=== PATIENT | female | born 1985 | race Caucasian/White ===

== ENCOUNTER 2016-06-02 08:12 | Emergency (ER) | payer BC ==
[2016-06-02 08:34] VITALS: BP 116/68
--- NOTE | 2016-06-02 09:30 | UC ---
UC General HPI - HPI Summary HPI Summary: Hx of kidney dz, sepsis, uti, kidney stone, MS Fever for two days and malaise. she has had right flank pain for two weeks which is not uncommon. she also has had continuous vomiting and URI symptoms. No obvious abd pain. - History of Current Complaint Chief Complaint: UCGI Stated Complaint: VOMITTING Time Seen by Provider: 06/02/16 08:19 Hx Obtained From: Patient Onset/Duration: Gradual Onset Timing: Constant Onset Severity: Severe Current Severity: Moderate Associated Signs & Symptoms: Positive: Decreased Oral Intake, Fever, Vomiting, Weakness - Allergy/Home Medications Allergies/Adverse Reactions: Allergies Allergy/AdvReac Type Severity Reaction Status Date / Time Bee Venom Allergy Swelling Verified 06/02/16 08:23 Influenza Vaccines Allergy Hives Verified 06/02/16 08:23 Iodine Allergy Hives Verified 06/02/16 08:23 Ketorolac Allergy Swelling Verified 06/02/16 08:23 Penicillins Allergy Anaphylatic Verified 06/02/16 08:23 Shock Pertussis Vaccine Allergy Unknown Verified 06/02/16 08:23 Reaction Details Shellfish Allergy Allergy Anaphylatic Verified 06/02/16 08:23 Shock contrast dye Allergy Anaphylatic Uncoded 06/02/16 08:23 Shock Home Medications: Home Medications Cyanocobalamin [Vitamin B-12] 50,000 mcg PO WEEKLY 06/02/16 [History Confirmed 06/02/16] Diazepam TAB(*) [Valium TAB(*)] 2 mg PO BEDTIME 06/02/16 [History Confirmed 11/11] Hydrocodone-Acetaminophen [Hydrocodone/Acetaminophen 5-325 mg] 1 tab PO TID PRN 06/02/16 [History Confirmed 06/02/16] PMH/Surg Hx/FS Hx/Imm Hx Previously Healthy: No - chronic kidney disease. MS. - Surgical History Surgical History: Yes Surgery Procedure, Year, and Place: hysterectomy. bowel surgery. carpal tunnel bilateral. ovaries removed. lithotripsy - Family History Known Family History: Positive: Hypertension - Social History Occupation: Employed Full-time Alcohol Use: Occasionally Substance Use Type: Prescribed Smoking Status (MU): Heavy Every Day Tobacco Smoker Type: Cigarettes Amount Used/How Often: 1/2 pack Review of Systems Skin: Negative Eyes: Negative ENT: Sore Throat Respiratory: Cough Cardiovascular: Negative Gastrointestinal: Vomiting Genitourinary: Negative Motor: Negative Neurovascular: Negative Musculoskeletal: Myalgia Neurological: Headache All Other Systems Reviewed And Are Negative: Yes Physical Exam Triage Information Reviewed: Yes Vital Signs: Initial Vital Signs Temp 98.8 F 06/02/16 08:27 Pulse 100 06/02/16 08:27 Resp 18 06/02/16 08:27 BP 116/68 06/02/16 08:27 Pulse Ox 100 06/02/16 08:27 Vital Signs Reviewed: Yes Eye Exam: Normal Eyes: Positive: Conjunctiva Clear ENT: Negative: Pharynx normal, Pharyngeal erythema, Nasal congestion, Tonsillar swelling, Tonsillar exudate Dental Exam: Normal Neck exam: Normal Neck: Positive: Supple Respiratory Exam: Normal Cardiovascular: Positive: No Murmur, Pulses Normal, Tachycardia - HR 95 Abdominal Exam: Normal Abdomen Description: Positive: Nontender, CVA Tenderness (R) Musculoskeletal Exam: Normal Musculoskeletal: Positive: Strength Intact Neurological: Positive: Alert, Muscle Tone Normal. Negative: Lethargic, Unresponsive Psychological Exam: Normal Skin Exam: Normal Course/Dx - Course Course Of Treatment: HIgh risk hx. right flank pain with fever reported at 102 and right flank pain and vomiting. Flu neg. No PCP or refurbish technician in [place]. she will needs labs, fluids, UA, possible right renal sonogram. possible early sepsis with sirs criteria. transfer to [place] [facility] and accepted by Alana Dwyer NP - Differential Dx - Multi-Symptom Provider Diagnoses: sirs. malaise, fever, flank pain, URI. - Physician Notifications Discussed Patient Care With: alana dwyer NP at [place] [facility]. Discharge - Discharge Plan Condition: Guarded Disposition: TRANS HIGHER LVL OF CARE FAC
== END 2016-06-02 09:35 | disposition left against medical advice (07) ==
LOC: UCCORT 08:12
DX: R65.10 Systemic inflammatory response syndrome (SIRS) of non-infectious origin without acute organ dysfunction (principal); J06.9 Acute upper respiratory infection, unspecified; N18.9 Chronic kidney disease, unspecified; G35 Multiple sclerosis; F17.210 Nicotine dependence, cigarettes, uncomplicated; Z88.0 Allergy status to penicillin; Z91.013 Allergy to seafood; Z88.7 Allergy status to serum and vaccine; Z91.048 Other nonmedicinal substance allergy status
CPT/HCPCS: 87502; 99202; G0463

== ENCOUNTER 2016-08-17 14:26 | Emergency (ER) | payer BC ==
--- NOTE | 2016-08-17 14:40 | UC ---
Throat Pain/Nasal Cory HPI - HPI Summary HPI Summary: sore throat, fever, for 24 hours. Son has been dx with strep throat. - History of Current Complaint Stated Complaint: COLD SYMPTOMS Time Seen by Provider: 08/17/16 14:33 Hx Obtained From: Patient Hx Last Menstrual Period: 9 yrs ago Onset/Duration: Gradual Onset Severity: Moderate Cough: Nonproductive Associated Signs & Symptoms: Positive: Dysphagia, Fever. Negative: FB Sensation , Drooling, Wheezing, Hoarseness, Sinus Discomfort, Nasal Discharge, Vomiting Related History: Smoking - Epiglottits Risk Factors Epiglottis Risk Factors: Negative - Allergies/Home Medications Allergies/Adverse Reactions: Allergies Allergy/AdvReac Type Severity Reaction Status Date / Time Bee Venom Allergy Swelling Verified 06/02/16 08:23 Influenza Vaccines Allergy Hives Verified 06/02/16 08:23 Iodine Allergy Hives Verified 06/02/16 08:23 Ketorolac Allergy Swelling Verified 06/02/16 08:23 Penicillins Allergy Anaphylatic Verified 06/02/16 08:23 Shock Pertussis Vaccine Allergy Unknown Verified 06/02/16 08:23 Reaction Details Shellfish Allergy Allergy Anaphylatic Verified 06/02/16 08:23 Shock contrast dye Allergy Anaphylatic Uncoded 06/02/16 08:23 Shock PMH/Surg Hx/FS Hx/Imm Hx Previously Healthy: No - Multiple sclerosis. Endocrine History Of: Denies: Diabetes - Surgical History Surgical History: Yes Surgery Procedure, Year, and Place: hysterectomy. bowel surgery. carpal tunnel bilateral. ovaries removed. lithotripsy - Family History Known Family History: Positive: Hypertension - Social History Occupation: Employed Full-time Alcohol Use: Occasionally Substance Use Type: Prescribed Smoking Status (MU): Heavy Every Day Tobacco Smoker Type: Cigarettes Amount Used/How Often: 1/2 pack Review of Systems All Other Systems Reviewed And Are Negative: Yes Physical Exam Triage Information Reviewed: Yes Appearance: Well-Appearing, No Pain Distress, Well-Nourished Vital Signs Reviewed: Yes Eye Exam: Normal Eyes: Positive: Conjunctiva Clear. Negative: Conjunctiva Inflamed ENT Exam: Normal ENT: Positive: Normal ENT inspection, Hearing grossly normal, Pharyngeal erythema, TMs normal. Negative: Pharynx normal, Nasal congestion, Nasal drainage, TM bulging, TM dull, TM red, Tonsillar swelling, Tonsillar exudate, Trismus, Muffled/hoarse voice Neck exam: Normal Neck: Positive: Supple, Nontender, No Lymphadenopathy. Negative: Nuchal Rigidity, Tenderness @, Enlarged Nodes @ Respiratory: Positive: Chest non-tender, Lungs clear, Normal breath sounds, No respiratory distress, No accessory muscle use. Negative: Respiratory distress, Decreased breath sounds, Accessory muscle use, Crackles, Rhonchi Cardiovascular Exam: Normal Cardiovascular: Positive: RRR, No Murmur, Pulses Normal Abdominal Exam: Normal Abdomen Description: Positive: Nontender, No Organomegaly, Soft Musculoskeletal Exam: Normal Musculoskeletal: Positive: Strength Intact, ROM Intact, No Edema Neurological Exam: Normal Neurological: Positive: Alert, Muscle Tone Normal Psychological Exam: Normal Skin Exam: Normal Skin: Negative: rashes Throat Pain/Nasal Course/Dx - Course Course Of Treatment: strep symptoms with strep contact. We will treat. she is non toxic and appears generally well. - Differential Dx/Diagnosis Differential Diagnosis/HQI/PQRI: Epiglottitis, Foreign Body, Influenza, Laryngitis, Tony's Angina, Mononucleosis, Otitis Media, Peritonsillar Abscess , Pharyngitis, Sinusitis, Tonsillitis Provider Diagnoses: strep throat. Discharge - Discharge Plan Condition: Good Disposition: HOME Prescriptions: Erythromycin TAB* 500 mg PO QID #28 tab Patient Education Materials: Strep Throat (ED) Forms: *Work Release Referrals: Non Staff,Doctor [Primary Care Provider] - Additional Instructions: return here for any worsening.
[2016-08-17 14:44] VITALS: BP 114/74
== END 2016-08-17 14:50 | disposition home or self-care (01) ==
LOC: UCCORT 14:26
DX: J02.0 Streptococcal pharyngitis (principal); Z88.0 Allergy status to penicillin; Z88.7 Allergy status to serum and vaccine; Z88.5 Allergy status to narcotic agent; Z91.041 Radiographic dye allergy status; F17.210 Nicotine dependence, cigarettes, uncomplicated
CPT/HCPCS: 99212; G0463

== ENCOUNTER 2017-02-04 15:40 | Emergency (ER) | payer BC ==
[2017-02-04 16:30] VITALS: BP 112/76
--- NOTE | 2017-02-04 16:57 | UC ---
UC General HPI - HPI Summary HPI Summary: Patient complaining of overall body aches, has hx of MS, takes NORCO TID and has run out of her medication. states she has cough and head congestion, shoulder pain, left leg pain, sees DR Cloud for her MS and kidney disease who normally prescribes her medications. patient has generalized, no related complaints and states she has run out of her pain medications. - History of Current Complaint Chief Complaint: UCGeneralIllness Stated Complaint: BODY ACHES,CONGESTION Time Seen by Provider: 02/04/17 16:40 Hx Obtained From: Patient Hx Last Menstrual Period: 9 yrs ago Onset/Duration: Sudden Onset, Lasting Days Timing: Constant Onset Severity: Mild Current Severity: Moderate - Allergy/Home Medications Allergies/Adverse Reactions: Allergies Allergy/AdvReac Type Severity Reaction Status Date / Time Bee Venom Allergy Swelling Verified 02/04/17 16:30 Influenza Vaccines Allergy Hives Verified 02/04/17 16:30 Iodinated Diagnostic Agents Allergy Anaphylatic Verified 02/04/17 16:30 Shock Iodine Allergy Hives Verified 02/04/17 16:30 Ketorolac Allergy Swelling Verified 02/04/17 16:30 Penicillins Allergy Anaphylatic Verified 02/04/17 16:30 Shock Pertussis Vaccine Allergy Unknown Verified 02/04/17 16:30 Reaction Details Shellfish Allergy Allergy Anaphylatic Verified 02/04/17 16:30 Shock Home Medications: Home Medications Acetaminophen [Acetaminophen Extra Stren] 1,000 mg PO Q6H PRN 02/04/17 [History Confirmed 02/04/17] Dextromethorphan-Phenylephrine [Day Time Multi-Symptom Co] 1 cap PO ONCE PRN 03/13 [History Confirmed 02/04/17] Hydrocodone-Acetaminophen [Hydrocodone/Acetaminophen 10-325 mg] 1 tab PO TID 03/13 [History Confirmed 02/04/17] Tamsulosin CAP* [Flomax CAP*] 0.4 mg PO DAILY 02/04/17 [History Confirmed ] PMH/Surg Hx/FS Hx/Imm Hx Previously Healthy: Yes - Surgical History Surgical History: Yes Surgery Procedure, Year, and Place: hysterectomy. bowel surgery. carpal tunnel bilateral. ovaries removed. lithotripsy. [facility] - Family History Known Family History: Positive: Hypertension - Social History Alcohol Use: None Substance Use Type: Prescribed Smoking Status (MU): Heavy Every Day Tobacco Smoker Type: Cigarettes Amount Used/How Often: 1/2 pack Length of Time of Smoking/Using Tobacco: 10 YRS Have You Smoked in the Last Year: Yes - Immunization History Most Recent Influenza Vaccination: Not the Season Review of Systems Constitutional: Negative Skin: Negative Eyes: Negative ENT: Sinus Congestion, Sinus Pain/Tenderness Respiratory: Cough Cardiovascular: Negative Gastrointestinal: Negative Genitourinary: Negative Motor: Negative Neurovascular: Negative Musculoskeletal: Arthralgia, Myalgia Neurological: Negative Psychological: Negative Is Patient Immunocompromised?: No All Other Systems Reviewed And Are Negative: Yes Physical Exam Triage Information Reviewed: Yes Appearance: Well-Appearing, Well-Nourished, Pain Distress Vital Signs: Initial Vital Signs Temp 98.8 F 02/04/17 16:21 Pulse 93 02/04/17 16:21 Resp 16 02/04/17 16:21 BP 112/76 02/04/17 16:21 Pulse Ox 100 02/04/17 16:21 Vital Signs Reviewed: Yes Eye Exam: Normal Eyes: Positive: Conjunctiva Clear ENT Exam: Normal ENT: Positive: Hearing grossly normal, Pharynx normal, TMs normal Dental Exam: Normal Neck exam: Normal Neck: Positive: Supple, Nontender, No Lymphadenopathy Respiratory Exam: Normal Respiratory: Positive: Chest non-tender, Lungs clear, Normal breath sounds Cardiovascular Exam: Normal Cardiovascular: Positive: RRR, No Murmur, Pulses Normal Abdominal Exam: Normal Abdomen Description: Positive: Nontender, No Organomegaly, Soft Bowel Sounds: Positive: Present Musculoskeletal Exam: Normal Musculoskeletal: Positive: Strength Intact, ROM Intact, No Edema Neurological Exam: Normal Neurological: Positive: Alert, Muscle Tone Normal Psychological Exam: Normal Skin Exam: Normal Course/Dx - Course Course Of Treatment: hx obtained, exam performed ,meds reviewed, treaed with prednisone for the nsal inflammation and joint pain, recommend contating Dr Cloud tomorrow to refill her narcotic prescriptions. - Differential Dx - Multi-Symptom Provider Diagnoses: cough. nasal congestion. Multiple sclerosis Discharge - Discharge Plan Condition: Stable Disposition: HOME Patient Education Materials: Arthralgia (ED), Cold Symptoms (ED) Additional Instructions: 1. take the medication as prescribed. 2. Follow up with Dr Cloud tomorrow for your narcotic prescriptions for refills. 3. increas fluid intake and get plenty of rest.
== END 2017-02-04 17:20 | disposition home or self-care (01) ==
LOC: UCCORT 15:40
DX: R05 Cough (principal); R09.81 Nasal congestion; G35 Multiple sclerosis; Z88.7 Allergy status to serum and vaccine; Z88.3 Allergy status to other anti-infective agents; Z91.030 Bee allergy status; Z88.5 Allergy status to narcotic agent; Z88.0 Allergy status to penicillin; Z91.013 Allergy to seafood; F17.210 Nicotine dependence, cigarettes, uncomplicated
CPT/HCPCS: 99212; G0463

== ENCOUNTER 2017-07-29 08:26 | Emergency (ER) | payer BC ==
[2017-07-29 08:53] VITALS: BP 114/78
[2017-07-29] MEDS ORDERED: HYDROcodone/ACETAMIN 5-325 MG* 1 TAB PO ONE (09:25)
--- NOTE | 2017-07-29 09:30 | UC ---
UC Dental HPI - HPI Summary HPI Summary: right upper dental pain that worsened today--Is on chronic vicoden (gets filled tomorrow) and "cannot take Nsaids due to kidney disease" - History of Current Complaint Chief Complaint: UCDentalProblem Stated Complaint: DENTAL PAIN Time Seen by Provider: 07/29/17 09:15 Hx Obtained From: Patient Hx Last Menstrual Period: 9 yrs ago ?: No Onset/Duration: Gradual Onset, Lasting Days, Worse Since - today Severity: Severe Pain Intensity: 7 Pain Scale Used: 0-10 Numeric Alleviating Factor(s): Nothing Related History: Previous Dental Care on Same Tooth, Swelling - Allergies/Home Medications Allergies/Adverse Reactions: Allergies Allergy/AdvReac Type Severity Reaction Status Date / Time bee venom protein (honey bee) Allergy Swelling Verified 07/29/17 08:47 Influenza Virus Vaccines Allergy Hives Verified 07/29/17 08:47 Iodinated Contrast- Oral and Allergy Anaphylatic Verified 07/29/17 08:47 IV Dye Shock iodine Allergy Hives Verified 07/29/17 08:47 ketorolac Allergy Swelling Verified 07/29/17 08:47 Penicillins Allergy Anaphylatic Verified 07/29/17 08:47 Shock Pertussis Vaccines Allergy Unknown Verified 07/29/17 08:47 Reaction Details shellfish derived Allergy Anaphylatic Verified 07/29/17 08:47 Shock Home Medications: Home Medications Cholecalciferol TAB* [Vitamin D TAB*] 1,000 unit PO DAILY 07/29/17 [History Confirmed 07/29/17] EPINEPHrine [Epipen] 0.3 mg IJ ONCE 07/29/17 [History Confirmed 07/29/17] predniSONE TAB* [Deltasone TAB*] 20 mg PO DAILY 07/29/17 [History Confirmed 09/12] PMH/Surg Hx/FS Hx/Imm Hx Previously Healthy: No GI/ History: Other Other GI/ History: "Kidney disease" - Surgical History Surgical History: Yes Surgery Procedure, Year, and Place: hysterectomy. bowel surgery. carpal tunnel bilateral. ovaries removed. lithotripsy. [facility] - Family History Known Family History: Positive: Hypertension - Social History Occupation: Employed Full-time Lives: With Family Alcohol Use: None Substance Use Type: Prescribed Smoking Status (MU): Heavy Every Day Tobacco Smoker Type: Cigarettes Amount Used/How Often: 1/2 pack Length of Time of Smoking/Using Tobacco: 10 YRS Have You Smoked in the Last Year: Yes - Immunization History Most Recent Influenza Vaccination: allergic to flu vac Review of Systems Constitutional: Negative Skin: Negative Eyes: Negative ENT: Dental Pain - teeth1-4/5 hurting with pain radiating in to sinus Respiratory: Negative Cardiovascular: Negative Gastrointestinal: Negative Genitourinary: Negative Motor: Negative Neurovascular: Negative Musculoskeletal: Negative Neurological: Negative Psychological: Negative Is Patient Immunocompromised?: No All Other Systems Reviewed And Are Negative: Yes Physical Exam Triage Information Reviewed: Yes Appearance: Well-Appearing, Well-Nourished, Pain Distress Vital Signs: Initial Vital Signs Temp 98.2 F 07/29/17 08:44 Pulse 94 07/29/17 08:44 Resp 14 07/29/17 08:44 BP 114/78 07/29/17 08:44 Pulse Ox 99 07/29/17 08:44 Eye Exam: Normal Eyes: Positive: Conjunctiva Clear ENT Exam: Normal ENT: Positive: Normal ENT inspection, Hearing grossly normal, Pharynx normal, TMs normal, Uvula midline. Negative: Nasal congestion, Nasal drainage, Tonsillar swelling, Tonsillar exudate, Trismus, Hoarse voice, Dental tenderness , Sinus tenderness Dental Exam: Normal Dental: Positive: Percussion Tenderness @ - right upper teeth 1-4 Neck exam: Normal Neck: Positive: Supple, Nontender, No Lymphadenopathy Respiratory Exam: Normal Respiratory: Positive: Chest non-tender, Lungs clear, Normal breath sounds, No respiratory distress, No accessory muscle use Cardiovascular Exam: Normal Musculoskeletal Exam: Normal Neurological Exam: Normal Neurological: Positive: Alert, Muscle Tone Normal, Fatigued Psychological Exam: Normal Skin Exam: Normal Dental Complaint Course/Dx - Course Course Of Treatment: amoxicillin, hydrocodone, follow with dentist [facility] - Differential Dx/Diagnosis Provider Diagnoses: Acute dental pain Discharge - Discharge Plan Condition: Stable Disposition: HOME Prescriptions: Clindamycin Cap(NF) [Clindamycin Cap 300 mg Cap(NF)] 300 mg PO Q6H #40 cap Patient Education Materials: Toothache (ED) Referrals: No Primary Care Phys,NOPCP [Primary Care Provider] - Additional Instructions: Follow with dentist this week---We have included some dental referral information for you [facility]: 1 - pain and swelling
== END 2017-07-29 09:41 | disposition home or self-care (01) ==
LOC: UCCORT 08:26
DX: K08.89 Other specified disorders of teeth and supporting structures (principal); Z79.899 Other long term (current) drug therapy; Z88.7 Allergy status to serum and vaccine; Z88.8 Allergy status to other drugs, medicaments and biological substances; Z91.030 Bee allergy status; Z91.041 Radiographic dye allergy status; Z88.0 Allergy status to penicillin; Z91.013 Allergy to seafood
CPT/HCPCS: 99212; G0463

== ENCOUNTER 2017-10-10 13:10 | Emergency (ER) | payer BC ==
[2017-10-10 13:24] VITALS: BP 115/86
--- NOTE | 2017-10-10 14:03 | UC ---
General HPI - HPI Summary HPI Summary: She went to [facility] about two weeks ago to visit family. She quickly began to have vomiting and diarrhea. This has improved in that it is not happening as often but she still has vomiting and diarrhea on occassion. She had fevers at first and has been tylenol lately so she is not sure if she still has fevers. No blood in vomitus or stool. She has kidney disease but no intestinal disease. She has been able to hold down a bland diet. No symptoms. - History of Current Complaint Chief Complaint: UCGI Stated Complaint: FEVER Time Seen by Provider: 10/10/17 13:36 Hx Obtained From: Patient Hx Last Menstrual Period: 9 yrs ago Onset/Duration: Gradual Onset, Lasting Weeks Timing: Intermittent Episodes Lasting: Onset Severity: Moderate Current Severity: Mild Pain Intensity: 0 Associated Signs & Symptoms: Positive: Diarrhea, Diaphoresis, Fever, Nausea, Vomiting. Negative: Abdominal Pain - Allergy/Home Medications Allergies/Adverse Reactions: Allergies Allergy/AdvReac Type Severity Reaction Status Date / Time bee venom protein (honey bee) Allergy Swelling Verified 10/10/17 13:24 Influenza Virus Vaccines Allergy Hives Verified 10/10/17 13:24 Iodinated Contrast- Oral and Allergy Anaphylatic Verified 10/10/17 13:24 IV Dye Shock iodine Allergy Hives Verified 10/10/17 13:24 ketorolac Allergy Swelling Verified 10/10/17 13:24 Penicillins Allergy Anaphylatic Verified 10/10/17 13:24 Shock Pertussis Vaccines Allergy Unknown Verified 10/10/17 13:24 Reaction Details shellfish derived Allergy Anaphylatic Verified 10/10/17 13:24 Shock PMH/Surg Hx/FS Hx/Imm Hx Previously Healthy: No - kidney disease. - Surgical History Surgical History: Yes Surgery Procedure, Year, and Place: hysterectomy. bowel surgery. carpal tunnel bilateral. ovaries removed. lithotripsy. [facility]y - Family History Known Family History: Positive: Hypertension - Social History Lives: With Family Alcohol Use: None Substance Use Type: Prescribed Smoking Status (MU): Heavy Every Day Tobacco Smoker Type: Cigarettes Amount Used/How Often: 1/2 pack Length of Time of Smoking/Using Tobacco: 10 YRS Have You Smoked in the Last Year: Yes - Immunization History Most Recent Influenza Vaccination: allergic to flu vac Review of Systems Constitutional: Fever Gastrointestinal: Vomiting, Diarrhea All Other Systems Reviewed And Are Negative: Yes Physical Exam Triage Information Reviewed: Yes Appearance: Well-Appearing - She is non toxic appearing., No Pain Distress, Well -Nourished Vital Signs: Initial Vital Signs Temp 98.8 F 10/10/17 13:19 Pulse 97 10/10/17 13:19 Resp 18 10/10/17 13:19 BP 115/86 10/10/17 13:19 Pulse Ox 100 10/10/17 13:19 Vital Signs Reviewed: Yes Eyes: Positive: Conjunctiva Clear, Conjunctiva Inflamed ENT: Positive: Hearing grossly normal, Pharynx normal, Pharyngeal erythema. Negative: Nasal congestion Neck: Positive: Supple, Nontender, No Lymphadenopathy Respiratory: Positive: Lungs clear, Normal breath sounds, No respiratory distress, No accessory muscle use. Negative: Respiratory distress, Decreased breath sounds, Accessory muscle use, Crackles, Rhonchi, Stridor, Wheezing Cardiovascular: Positive: No Murmur, Pulses Normal, Brisk Capillary Refill Abdominal Exam: Other - Abd soft and flat. Non tender even with deep palpation. Abdomen Description: Positive: No Organomegaly, Soft. Negative: Distended, Guarding Musculoskeletal: Positive: Strength Intact, ROM Intact, No Edema Neurological: Positive: Alert, Muscle Tone Normal, Fatigued Psychological: Positive: Age Appropriate Behavior Skin: Negative: rashes Course/Dx - Course Course Of Treatment: Likely improving symptoms. We will make sure this is not treatable bacterial infection and kit was given to collect stool and obtain culture, o&P. Exam is benign. No signs of dehydration. VSS. - Differential Dx - Multi-Symptom Provider Diagnoses: diarrhea. vomiting Discharge - Sign-Out/Discharge Documenting (check all that apply): Discharge/Admit/Transfer - Discharge Plan Condition: Good Disposition: HOME Prescriptions: Diphenoxylat/Atrop 2.5-0.025M* [Lomotil TAB*] 1 tab PO QID PRN #32 tab MDD 4 PRN Reason: Diarrhea Ondansetron ODT TAB* [Zofran 4 MG Odt TAB*] 4 mg PO Q8H PRN #21 tab.odt PRN Reason: Vomiting Patient Education Materials: Acute Nausea and Vomiting (ED), Acute Diarrhea (ED ) Forms: *Work Release Referrals: No Primary Care Phys,NOPCP [Primary Care Provider] - - Billing Disposition and Condition Condition: GOOD Disposition: HOME
== END 2017-10-10 14:09 | disposition home or self-care (01) ==
LOC: UCCORT 13:10
DX: R19.7 Diarrhea, unspecified (principal); R11.10 Vomiting, unspecified; Z88.7 Allergy status to serum and vaccine; Z88.8 Allergy status to other drugs, medicaments and biological substances; Z88.6 Allergy status to analgesic agent; Z91.030 Bee allergy status; Z91.041 Radiographic dye allergy status; Z88.0 Allergy status to penicillin; Z91.013 Allergy to seafood; F17.210 Nicotine dependence, cigarettes, uncomplicated
CPT/HCPCS: 99212; G0463

== ENCOUNTER 2017-11-01 13:25 | Emergency (ER) | payer BC ==
--- NOTE | 2017-11-01 14:24 | ED ---
GI/ HPI - HPI Summary HPI Summary: 32 yr old female with the complaint of NV. Onset yesterday and with associated fever chill symptoms and myalgias. The patient states her household is having vomiting and diarrhea now. She came here for a note for work. She cannot get into her PMD until December, and she need a note. She has a script for nausea medicine at home. - History of Current Complaint Time Seen by Provider: 11/01/17 14:14 Stated Complaint: VOMITING Hx Last Menstrual Period: 9 yrs ago - Allergy/Home Medications Allergies/Adverse Reactions: Allergies Allergy/AdvReac Type Severity Reaction Status Date / Time bee venom protein (honey bee) Allergy Swelling Verified 10/10/17 13:24 Influenza Virus Vaccines Allergy Hives Verified 10/10/17 13:24 Iodinated Contrast- Oral and Allergy Anaphylatic Verified 10/10/17 13:24 IV Dye Shock iodine Allergy Hives Verified 10/10/17 13:24 ketorolac Allergy Swelling Verified 10/10/17 13:24 Penicillins Allergy Anaphylatic Verified 10/10/17 13:24 Shock Pertussis Vaccines Allergy Unknown Verified 10/10/17 13:24 Reaction Details shellfish derived Allergy Anaphylatic Verified 10/10/17 13:24 Shock PMH/Surg Hx/FS Hx/Imm Hx Endocrine/Hematology History: Denies: Hx Diabetes - Surgical History Surgery Procedure, Year, and Place: hysterectomy. bowel surgery. carpal tunnel bilateral. ovaries removed. lithotripsy. [facility] Infectious Disease History: Denies: Traveled Outside the [place] in Last 30 Days - Family History Known Family History: Positive: Hypertension - Social History Alcohol Use: None Substance Use Type: Reports: Prescribed Smoking Status (MU): Heavy Every Day Tobacco Smoker Type: Cigarettes Amount Used/How Often: 1/2 pack Length of Time of Smoking/Using Tobacco: 10 YRS Have You Smoked in the Last Year: Yes Review of Systems Constitutional: Negative Positive: Vomiting, Nausea All Other Systems Reviewed And Are Negative: Yes Physical Exam Triage Information Reviewed: Yes Vital Signs Reviewed: Yes Appearance: Positive: Well-Appearing, No Pain Distress Skin: Positive: Warm, Skin Color Reflects Adequate Perfusion Head/Face: Positive: Normal Head/Face Inspection Eyes: Positive: EOMI ENT: Positive: Normal ENT inspection Respiratory/Lung Sounds: Positive: Clear to Auscultation, Breath Sounds Present Cardiovascular: Positive: RRR. Negative: Murmur Abdomen Description: Positive: Nontender Musculoskeletal: Positive: Strength/ROM Intact Neurological: Positive: Sensory/Motor Intact, Alert, Oriented to Person Place, Time, CN Intact II-III Psychiatric: Positive: Normal - Autumn Coma Scale Best Eye Response: 4 - Spontaneous Best Motor Response: 6 - Obeys Commands Best Verbal Response: 5 - Oriented Coma Scale Total: 15 GIGU Course/Dx - Course Course Of Treatment: 32 yr female with gastroenteritis. DC home in stable condition. - Diagnoses Provider Diagnoses: Gastroenteritis Discharge - Sign-Out/Discharge Documenting (check all that apply): Discharge/Admit/Transfer - Discharge Plan Condition: Good Disposition: HOME Patient Education Materials: Gastroenteritis (ED) Forms: *Work Release Referrals: Sp Byrne MD [Primary Care Provider] - - Billing Disposition and Condition Condition: GOOD Disposition: Home
[2017-11-01 14:27] VITALS: BP 116/76
== END 2017-11-01 14:40 | disposition home or self-care (01) ==
LOC: UCCORT 13:25
DX: K52.9 Noninfective gastroenteritis and colitis, unspecified (principal); Z88.7 Allergy status to serum and vaccine; Z88.8 Allergy status to other drugs, medicaments and biological substances; Z91.030 Bee allergy status; Z91.041 Radiographic dye allergy status; Z88.0 Allergy status to penicillin; Z91.013 Allergy to seafood
CPT/HCPCS: 99211; G0463

== ENCOUNTER 2017-12-06 10:58 | Emergency (ER) | payer BC ==
[2017-12-06 12:03] VITALS: BP 118/84
[2017-12-06] MEDS ORDERED: Fluorescein Sod TOPICAL 0.6* 0.6 MG TEST OPHTHALMIC ONE ×2 (12:09→12:11)
[2017-12-06] MEDS ORDERED: BSS OPTH.SOL* BTL ONE (12:11)
[2017-12-06] MEDS ORDERED: Tetracaine 0.5% OPTH.SOL 4 ML* 1 DROP BTL ONE (12:11)
--- NOTE | 2017-12-06 12:11 | UC ---
Eye Complaint HPI - History of Current Complaint Chief Complaint: Magy Stated Complaint: RIGHT EYE Time Seen by Provider: 12/06/17 11:54 Hx Last Menstrual Period: 9 yrs ago Onset/Duration: Lasting Hours Timing: Constant Severity Initially: Moderate Severity Currently: Moderate Pain Intensity: 0 Character: Sharp, Dull Aggravating Factor(s): Light Alleviating Factor(s): Darkness Associated Signs And Symptoms: Positive: Photophobia - Risk Factors Globe Rupture Risk Factors: Negative Acute Glaucoma Risk Factors: Negative - Allergies/Home Medications Allergies/Adverse Reactions: Allergies Allergy/AdvReac Type Severity Reaction Status Date / Time bee venom protein (honey bee) Allergy Swelling Verified 12/06/17 11:54 Influenza Virus Vaccines Allergy Hives Verified 12/06/17 11:54 Iodinated Contrast- Oral and Allergy Anaphylatic Verified 12/06/17 11:54 IV Dye Shock iodine Allergy Hives Verified 12/06/17 11:54 ketorolac Allergy Swelling Verified 12/06/17 11:54 Penicillins Allergy Anaphylatic Verified 12/06/17 11:54 Shock Pertussis Vaccines Allergy Unknown Verified 12/06/17 11:54 Reaction Details shellfish derived Allergy Anaphylatic Verified 12/06/17 11:54 Shock PMH/Surg Hx/FS Hx/Imm Hx Previously Healthy: Yes - Surgical History Surgical History: Yes Surgery Procedure, Year, and Place: hysterectomy. bowel surgery. carpal tunnel bilateral. ovaries removed. lithotripsy. [facility] - Family History Known Family History: Positive: None, Hypertension - Social History Alcohol Use: None Substance Use Type: Prescribed Smoking Status (MU): Heavy Every Day Tobacco Smoker Type: Cigarettes Amount Used/How Often: 1/2 pack Length of Time of Smoking/Using Tobacco: 10 YRS Have You Smoked in the Last Year: Yes - Immunization History Most Recent Influenza Vaccination: allergic to flu vac Review of Systems Motor: Negative Neurovascular: Negative Musculoskeletal: Negative Neurological: Negative Psychological: Negative Is Patient Immunocompromised?: No All Other Systems Reviewed And Are Negative: Yes Physical Exam Triage Information Reviewed: Yes Appearance: Well-Appearing Vital Signs: Initial Vital Signs Temp 37.3 C 12/06/17 11:56 Pulse 92 12/06/17 11:56 Resp 14 12/06/17 11:56 BP 118/84 12/06/17 11:56 Pulse Ox 98 12/06/17 11:56 Vital Signs Reviewed: Yes Eye Exam: Other - some injection of the conjunctiva on the right normal pupillary reaction to light normal optic fundus, normal cup to disc ratio , fluroscein stain negative right eye visual acuity 20/70 , left 20/50 without glasses ENT: Positive: Normal ENT inspection Dental Exam: Normal Neck exam: Normal Neck: Positive: Supple Respiratory Exam: Normal Respiratory: Positive: Chest non-tender Cardiovascular Exam: Normal Cardiovascular: Positive: RRR Eye Complaint Course/Dx - Differential Dx/Diagnosis Provider Diagnoses: anterior uveitis Discharge - Sign-Out/Discharge Documenting (check all that apply): Patient Departure - Discharge Plan Condition: Good Disposition: HOME Patient Education Materials: Iritis (ED) Referrals: Sp Byrne MD [Primary Care Provider] - - Billing Disposition and Condition Condition: GOOD Disposition: Home
[2017-12-06] MEDS ORDERED: Tetracaine 0.5% OPTH.SOL 4 ML* 1 DROP BTL RIGHT EYE SCH (12:30)
== END 2017-12-06 12:44 | disposition home or self-care (01) ==
LOC: UCCORT 10:58
DX: H20.9 Unspecified iridocyclitis (principal); Z88.0 Allergy status to penicillin; Z88.7 Allergy status to serum and vaccine; F17.210 Nicotine dependence, cigarettes, uncomplicated
CPT/HCPCS: 99211; A9270-GY; G0463

== ENCOUNTER 2018-07-11 12:40 | Emergency (ER) | payer BC ==
[2018-07-11 13:44] VITALS: BP 135/90
--- NOTE | 2018-07-11 13:52 | UC ---
Respiratory Complaint HPI - HPI Summary HPI Summary: 3 day hx of sinus pressure, malaise, increasing headache. Many allergies and is sinusitis prone. 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 headache today and had to leave work. - History of Current Complaint Stated Complaint: CONGESTION,SORE THROAT Time Seen by Provider: 07/11/18 13:42 Hx Obtained From: Patient Hx Last Menstrual Period: 9 yrs ago Onset/Duration: Sudden Onset, Lasting Days - 3 Severity Initially: Moderate Severity Currently: Moderate Pain Intensity: 5 Pain Scale Used: 0-10 Numeric Aggravating Factors: Allergens Alleviating Factors: OTC Meds - used acetaminophen for headache. Related History: Seasonal Allergies - Risk Factors Pulmonary Embolism Risk Factors: Negative Cardiac Risk Factors: Smoking Pseudomonas Risk Factors: Negative Tuberculosis Risk Factors: Negative - Allergies/Home Medications Allergies/Adverse Reactions: Allergies Allergy/AdvReac Type Severity Reaction Status Date / Time bee venom protein (honey bee) Allergy Swelling Verified 07/11/18 13:41 Influenza Virus Vaccines Allergy Hives Verified 07/11/18 13:41 Iodinated Contrast- Oral and Allergy Anaphylatic Verified 07/11/18 13:41 IV Dye Shock iodine Allergy Hives Verified 07/11/18 13:41 ketorolac Allergy Swelling Verified 07/11/18 13:41 Penicillins Allergy Anaphylatic Verified 07/11/18 13:41 Shock Pertussis Vaccines Allergy Unknown Verified 07/11/18 13:41 Reaction Details shellfish derived Allergy Anaphylatic Verified 07/11/18 13:41 Shock PMH/Surg Hx/FS Hx/Imm Hx GI/ History: Kidney Stones - Surgical History Surgical History: Yes Surgery Procedure, Year, and Place: hysterectomy. bowel surgery. carpal tunnel bilateral. ovaries removed. lithotripsy. [facility] - Family History Known Family History: Positive: Hypertension - Social History Occupation: Employed Full-time Lives: With Family Alcohol Use: None Substance Use Type: None Smoking Status (MU): Heavy Every Day Tobacco Smoker Type: Cigarettes Amount Used/How Often: 1/2 pack Length of Time of Smoking/Using Tobacco: 10 YRS Have You Smoked in the Last Year: Yes - Immunization History Most Recent Influenza Vaccination: allergic to flu vac Review of Systems All Other Systems Reviewed And Are Negative: Yes Constitutional: Positive: Fatigue Skin: Positive: Negative Eyes: Positive: Negative ENT: Positive: Sore Throat, Ear Ache, Sinus Congestion, Sinus Pain/Tenderness Respiratory: Positive: Negative Cardiovascular: Positive: Negative Gastrointestinal: Positive: Negative Genitourinary: Positive: Negative Motor: Positive: Negative Neurovascular: Positive: Negative Musculoskeletal: Positive: Negative Neurological: Positive: Negative Psychological: Positive: Negative Is Patient Immunocompromised?: No Physical Exam Triage Information Reviewed: Yes Appearance: Ill-Appearing - congested and looks mildly unwell Vital Signs: Initial Vital Signs Temp 97.9 F 07/11/18 13:40 Pulse 88 07/11/18 13:40 Resp 17 07/11/18 13:40 BP 135/90 07/11/18 13:40 Pulse Ox 100 07/11/18 13:40 Eyes: Positive: Conjunctiva Clear ENT: Positive: Pharyngeal erythema, Sinus tenderness - percussive tenderness left maxillary sinus ++ Neck: Positive: Supple, Nontender, No Lymphadenopathy Respiratory: Positive: Lungs clear, Normal breath sounds Cardiovascular: Positive: RRR, No Murmur Musculoskeletal Exam: Normal Neurological Exam: Normal Neurological: Positive: Alert, Muscle Tone Normal Psychological Exam: Normal Skin Exam: Normal UC Diagnostic Evaluation - Laboratory O2 Sat by Pulse Oximetry: 100 Respiratory Course/Dx - Course Course Of Treatment: cephalexin for treatment, encouraged nasal spray. - Differential Dx/Diagnosis Differential Diagnosis/HQI/PQRI: Influenza, Laryngitis, Sinusitis Provider Diagnosis: Acute maxillary sinusitis Discharge - Sign-Out/Discharge Documenting (check all that apply): Patient Departure All imaging exams completed and their final reports reviewed: No Studies - Discharge Plan Condition: Stable Disposition: HOME Prescriptions: cephALEXin [Keflex] 500 mg PO BID #14 capsule Fluticasone NASAL SPRAY 50MCG* [Flonase NASAL SPRAY 50MCG*] 2 spray BOTH NARES DAILY #1 btl Patient Education Materials: Sinusitis (ED) Forms: *Work Release Referrals: No Primary Care Phys,NOPCP [Primary Care Provider] - Additional Instructions: take full course of antibiotic to treat infection. Use flonase spray to help to relieve sinus congestion, and continue use of acetaminophen for control of pain. - Billing Disposition and Condition Condition: STABLE Disposition: Home
== END 2018-07-11 14:06 | disposition home or self-care (01) ==
LOC: UCCORT 12:40
DX: J01.00 Acute maxillary sinusitis, unspecified (principal); N18.2 Chronic kidney disease, stage 2 (mild); F17.210 Nicotine dependence, cigarettes, uncomplicated; Z91.030 Bee allergy status; Z91.041 Radiographic dye allergy status; Z88.5 Allergy status to narcotic agent; Z91.013 Allergy to seafood; Z88.7 Allergy status to serum and vaccine; Z91.09 Other allergy status, other than to drugs and biological substances
CPT/HCPCS: 99212; G0463

== ENCOUNTER 2018-07-31 07:39 | Emergency (ER) | payer BC ==
[2018-07-31 07:56] VITALS: BP 121/81
[2018-07-31 08:40] LABS: Influenza A Molecular NEGATIVE (Negative); Influenza B Molecular NEGATIVE (Negative)
--- NOTE | 2018-07-31 08:51 | UC ---
FLU HPI - HPI Summary HPI Summary: ONSET OF COUGH, CONGESTION, SORE THROAT, BODY ACHES, FATIGUE AND FEVER YESTERDAY. TMAX 102. ONE CHILD AT HOME SWABBED POSITIVE FOR FLU LAST WEEK. THE OTHER CHILD HAS STREP THROAT. - History of Current Complaint Chief Complaint: UCGeneralIllness Stated Complaint: SINUS COMPLAINT Time Seen by Provider: 07/31/18 08:19 Hx Obtained From: Patient Hx Last Menstrual Period: 9 yrs ago Onset/Duration: Gradual Onset, Lasting Days - 1 DAY, Still Present Severity Currently: Moderate Severity Initially: Moderate Pain Intensity: 5 Pain Scale Used: 0-10 Numeric Associated Signs & Symptoms: Positive: Fever, Myalgia, Cough, Sore Throat, Nasal Congestion, Headache - Allergy/Home Medications Allergies/Adverse Reactions: Allergies Allergy/AdvReac Type Severity Reaction Status Date / Time bee venom protein (honey bee) Allergy Swelling Verified 07/31/18 07:50 Influenza Virus Vaccines Allergy Hives Verified 07/31/18 07:50 Iodinated Contrast- Oral and Allergy Anaphylatic Verified 07/31/18 07:50 IV Dye Shock iodine Allergy Hives Verified 07/31/18 07:50 ketorolac Allergy Swelling Verified 07/31/18 07:50 Penicillins Allergy Anaphylatic Verified 07/31/18 07:50 Shock Pertussis Vaccines Allergy Unknown Verified 07/31/18 07:50 Reaction Details shellfish derived Allergy Anaphylatic Verified 07/31/18 07:50 Shock Home Medications: Home Medications Acetaminophen [Tylenol Extra Strength] 1,000 mg PO ONCE PRN 07/31/18 [History Confirmed 07/31/18] Dm/Acetaminophen/Doxylamine [Nighttime Cold-Flu Rlf Sftgl] 1 each PO ONCE PRN [History Confirmed 07/31/18] PMH/Surg Hx/FS Hx/Imm Hx - Additional Past Medical History Additional PMH: AUTOIMMUNE DISEASE, MULTIPLE SCLEROSIS GI/ History: Kidney Stones - Surgical History Surgical History: Yes Surgery Procedure, Year, and Place: hysterectomy. bowel surgery. carpal tunnel bilateral. ovaries removed. lithotripsy. [facility] - Family History Known Family History: Positive: Hypertension - Social History Alcohol Use: None Substance Use Type: None Smoking Status (MU): Heavy Every Day Tobacco Smoker Type: Cigarettes Amount Used/How Often: 1/2 pack Length of Time of Smoking/Using Tobacco: 10 YRS Have You Smoked in the Last Year: Yes - Immunization History Most Recent Influenza Vaccination: allergic to flu vac Review of Systems All Other Systems Reviewed And Are Negative: Yes Constitutional: Positive: Fever, Fatigue ENT: Positive: Sore Throat, Sinus Congestion Respiratory: Positive: Cough Cardiovascular: Positive: Negative Gastrointestinal: Positive: Nausea Musculoskeletal: Positive: Myalgia Neurological: Positive: Headache Physical Exam Triage Information Reviewed: Yes Appearance: No Pain Distress, Well-Nourished, Ill-Appearing - MILDLY Vital Signs: Initial Vital Signs Temp 98.3 F 07/31/18 07:52 Pulse 95 07/31/18 07:52 Resp 14 07/31/18 07:52 BP 121/81 07/31/18 07:52 Pulse Ox 100 07/31/18 07:52 Laboratory Tests 07/31/18 07/31/18 08:23 08:28 Influenza A (Rapid) Negative Influenza B (Rapid) Negative Group A Strep Rapid Negative Vital Signs Reviewed: Yes Eyes: Positive: Conjunctiva Clear ENT: Positive: Hearing grossly normal, Pharynx normal, TMs normal Neck: Positive: Supple, Nontender, No Lymphadenopathy Respiratory Exam: Normal Cardiovascular: Positive: Tachycardia Abdomen Description: Positive: Soft Musculoskeletal: Positive: No Edema Neurological: Positive: Alert Psychological: Positive: Age Appropriate Behavior Skin: Negative: Rashes Flu Course/Dx - Differential Dx/Diagnosis Provider Diagnosis: Acute viral syndrome Discharge - Sign-Out/Discharge Documenting (check all that apply): Patient Departure All imaging exams completed and their final reports reviewed: No Studies - Discharge Plan Condition: Stable Disposition: HOME Prescriptions: Oseltamivir CAP* [Tamiflu CAP*] 75 mg PO BID #10 cap Patient Education Materials: Viral Syndrome (ED) Forms: *Work Release Referrals: No Primary Care Phys,NOPCP [Primary Care Provider] - Additional Instructions: FLU AND STREP SWABS BOTH NEGATIVE. YOUR SYMPTOMS SHOULD RESOLVE ON THEIR OWN WITH TIME BUT GIVEN YOUR POSITIVE FLU CONTACT AT HOME WILL COVER WITH TAMIFLU ( ANTIVIRAL) ANYWAY. NO INDICATION FOR ANTIBIOTICS AT PRESENT. REST, HYDRATE, OTC MEDS NEEDED. SEEK FOLLOW-UP IF YOU ARE NOT IMPROVING OVER THE NEXT 1-2 WEEKS. CALL THE NUMBER BELOW FOR ASSISTANCE IN ESTABLISHING WITH A PCP An additional resource available to assist in finding the appropriate physician for your health care needs is the [facility] ([facility]). You may contact them by calling [phone]. - Billing Disposition and Condition Condition: STABLE Disposition: Home
== END 2018-07-31 09:08 | disposition home or self-care (01) ==
LOC: UCCORT 07:39
DX: B34.9 Viral infection, unspecified (principal); R05 Cough; R09.81 Nasal congestion; J02.9 Acute pharyngitis, unspecified; M79.10 Myalgia, unspecified site; R53.83 Other fatigue; F17.210 Nicotine dependence, cigarettes, uncomplicated; Z88.7 Allergy status to serum and vaccine; Z91.041 Radiographic dye allergy status; Z88.8 Allergy status to other drugs, medicaments and biological substances; Z88.5 Allergy status to narcotic agent; Z88.0 Allergy status to penicillin; Z91.013 Allergy to seafood
CPT/HCPCS: 87651; 99212; G0463

== ENCOUNTER 2018-10-27 16:37 | Emergency (ER) | payer BC, OTHER ==
--- NOTE | 2018-10-27 17:07 | UC ---
Respiratory Complaint HPI - HPI Summary HPI Summary: Patient is 33 year old female, who present today to the urgent care with sinus congestion for past 2 weeks There is associated productive cough-yellowish sputum, headaches, postnasal drip. She denies any fever but notices chills. No sick contacts . Denies any chest pain or shortness of breath. Denies any abdominal pain , nausea or vomiting , diarrhea or constipation. Patient tried Charisse-D and Flonase with some relief - History of Current Complaint Stated Complaint: COUGH,SINUS COMPLAINT,HEADACHE Time Seen by Provider: 10/27/18 17:03 Hx Obtained From: Patient Hx Last Menstrual Period: 9 yrs ago - Allergies/Home Medications Allergies/Adverse Reactions: Allergies Allergy/AdvReac Type Severity Reaction Status Date / Time bee venom protein (honey bee) Allergy Swelling Verified 10/27/18 17:15 Influenza Virus Vaccines Allergy Hives Verified 10/27/18 17:15 Iodinated Contrast- Oral and Allergy Anaphylatic Verified 10/27/18 17:15 IV Dye Shock iodine Allergy Hives Verified 10/27/18 17:15 Penicillins Allergy Anaphylatic Verified 10/27/18 17:15 Shock Pertussis Vaccines Allergy Unknown Verified 10/27/18 17:15 Reaction Details shellfish derived Allergy Anaphylatic Verified 10/27/18 17:15 Shock ketorolac AdvReac Swelling Verified 10/27/18 17:15 Home Medications: Home Medications Fexofenadine/Pseudoephedrine [Charisse-D 24 Hour Tablet] 1 each PO DAILY [History Confirmed 10/27/18] Tamsulosin CAP* [Flomax CAP*] 0.4 mg PO BID 10/27/18 [History Confirmed 10/27/18 ] PMH/Surg Hx/FS Hx/Imm Hx - Additional Past Medical History Additional PMH: Past Medical History : MS, renal stone, stage II kidney disease Past Surgical History: Status post hysterectomy in 2007, carpal tunnel surgery Family History : Hypertension, Noncontributory Social History : No alcohol, daily smoker, no drug use. Works at [employer] Previously Healthy: Yes - Surgical History Surgical History: Yes Surgery Procedure, Year, and Place: hysterectomy. bowel surgery. carpal tunnel bilateral. ovaries removed. lithotripsy. [facility] - Family History Known Family History: Positive: Hypertension - Social History Alcohol Use: None Substance Use Type: None Smoking Status (MU): Heavy Every Day Tobacco Smoker Type: Cigarettes Amount Used/How Often: 1/2 pack Length of Time of Smoking/Using Tobacco: 10 YRS Have You Smoked in the Last Year: Yes - Immunization History Most Recent Influenza Vaccination: allergic to flu vac Review of Systems All Other Systems Reviewed And Are Negative: Yes Constitutional: Positive: Chills. Negative: Fever Skin: Positive: Negative Eyes: Positive: Negative ENT: Positive: Sinus Congestion, Sinus Pain/Tenderness Respiratory: Positive: Cough - Productive. Negative: Shortness Of Breath Cardiovascular: Positive: Negative Gastrointestinal: Positive: Negative Genitourinary: Positive: Negative Motor: Positive: Negative Neurovascular: Positive: Negative Musculoskeletal: Positive: Negative - Yes Neurological: Positive: Headache - Frontal Psychological: Positive: Negative Is Patient Immunocompromised?: No Physical Exam - Summary Physical Exam Summary: Physical Exam: Const: Appears well. No signs of apparent distress present. Alert and oriented x 3. Musculo: Walks with a normal gait. Head/Face: Atraumatic, normocephalic on inspection. Eyes: EOMI and PERRLA in both eyes. Conjunctivae clear. No discharge noted ENT: Hearing normal, TM normal appearing bilaterally, non bulging , non erythematous . No tenderness on palpation / manipulation of Tragus. No mastoid tenderness. there is tenderness to palpation on maxillary and frontal sinus. more on maxillary bilaterally . No pharyngeal erythema or exudates . Uvula is midline. There is bilateral cervical or submandibular lymphadenopathy noted. But nontender Respiratory: Respirations are unlabored. Lungs clear to auscultation bilaterally, no wheezing , rhonchi or rales noted . CVS: Regular rate and Rhythm, S1S2 normal , no murmurs identified. Extremities: Peripheral circulation is grossly normal. Pulses 2+ Abdomen : Soft non tender , nondistended , Bowel sounds present . No guarding , rebound tenderness or rigidity noted. Skin: No lesions or rash located on the upper extremities or on the lower extremities. Neuro: Cranial nerves II to XII intact, motor and sensory intact. DTR Intact bilaterally. Mood is normal. Affect is normal. Triage Information Reviewed: Yes Vital Signs Reviewed: Yes Respiratory Course/Dx - Course Course Of Treatment: During the visit today, we obtained discussed the findings consistent with sinusitis and further plan to treat with doxycycline as she is allergic to penicillin. I will prescribe the medication to the pharmacy . I also prescribed the Ventolin HFA and generic epinephrine as she she could not get the EpiPen and she has a history of anaphylaxis. I called in the prescription for the generic EpiPen Patient expressed understanding . - Differential Dx/Diagnosis Provider Diagnosis: Sinusitis Discharge - Sign-Out/Discharge Documenting (check all that apply): Patient Departure All imaging exams completed and their final reports reviewed: No Studies - Discharge Plan Condition: Stable Disposition: HOME Prescriptions: Albuterol HFA INHALER* [Ventolin HFA Inhaler*] 1 puff INH Q6H PRN 10 Days #1 mdi PRN Reason: Shortness Of Breath DOXYcycline CAP(*) [DOXYcycline 100MG CAP(*)] 100 mg PO BID 14 Days #28 cap Loratadine/Pseudoephedrine [Claritin-D 24 Hour Tablet] 1 each PO DAILY #10 tab.er.24h Patient Education Materials: Sinusitis (ED) Referrals: [facility] [place] [facility] [Outside] - 1 Week No Primary Care Phys,NOPCP [Primary Care Provider] - Additional Instructions: Please start taking the medication as prescribed to the pharmacy . Follow up with your primary care doctor in 1 week if needed Patients blood pressure slightly high in Urgent care today (prehypertensive range) , plan follow up with PCP for better control Return to Urgent care / ER if symptoms get worse. - Billing Disposition and Condition Condition: STABLE Disposition: Home
[2018-10-27 17:10] VITALS: BP 122/82
== END 2018-10-27 17:38 | disposition home or self-care (01) ==
LOC: UCCORT 16:37
DX: J01.90 Acute sinusitis, unspecified (principal); G35 Multiple sclerosis; N18.2 Chronic kidney disease, stage 2 (mild); F17.210 Nicotine dependence, cigarettes, uncomplicated; Z88.8 Allergy status to other drugs, medicaments and biological substances; Z91.030 Bee allergy status; Z91.041 Radiographic dye allergy status; Z88.0 Allergy status to penicillin; Z91.013 Allergy to seafood; Z87.442 Personal history of urinary calculi
CPT/HCPCS: 99212; G0463

== ENCOUNTER 2018-11-01 12:09 | Emergency (ER) | payer OTHER | END 2018-11-01 13:15 | disposition left against medical advice (07) | LOC: UCCORT 12:09 | DX: S09.93XA Unspecified injury of face, initial encounter (principal); X58.XXXA Exposure to other specified factors, initial encounter; Y92.9 Unspecified place or not applicable; Z53.21 Procedure and treatment not carried out due to patient leaving prior to being seen by health care provider | CPT/HCPCS: 99211; G0463 ==

== ENCOUNTER 2019-03-15 09:19 | Emergency (ER) | payer OTHER ==
[2019-03-15 09:36] VITALS: BP 119/82
--- NOTE | 2019-03-15 10:43 | UC ---
Complaint Female HPI - HPI Summary HPI Summary: Pt presents with c/o UTI like symptoms. Pt has HX of chronic Kidney disease since age 10 and continual production of kidney stones. 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 Pt began taking clindamycin last week. Pt has had UI like symptoms X 2 weeks. - History Of Current Complaint Chief Complaint: UCGU Stated Complaint: URINARY COMPLAINT Time Seen by Provider: 03/15/19 09:25 Hx Obtained From: Patient Hx Last Menstrual Period: 9 yrs ago ?: No Onset/Duration: Sudden Onset, Lasting Days - 14, Still Present Timing: Constant Severity Initially: Mild Severity Currently: Mild Pain Intensity: 3 Pain Scale Used: 0-10 Numeric Character: Dull, Burning Aggravating Factor(s): Urination Associated Signs And Symptoms: Positive: Vaginal Discharge - pt believes she has a vaginal yeast infection - Risk Factors Ectopic Risk Factor: Negative Ovarian Torsion Risk Factor: Negative - Allergies/Home Medications Allergies/Adverse Reactions: Allergies Allergy/AdvReac Type Severity Reaction Status Date / Time bee venom protein (honey bee) Allergy Swelling Verified 03/15/19 09:28 Influenza Virus Vaccines Allergy Hives Verified 03/15/19 09:28 Iodinated Contrast Media Allergy Anaphylatic Verified 03/15/19 09:28 [Iodinated Contrast- Oral Shock and IV Dye] iodine Allergy Hives Verified 03/15/19 09:28 levofloxacin [From Levaquin] Allergy Unknown Verified 03/15/19 09:28 Reaction Details Penicillins Allergy Anaphylatic Verified 03/15/19 09:28 Shock Pertussis Vaccines Allergy Unknown Verified 03/15/19 09:28 Reaction Details shellfish derived Allergy Anaphylatic Verified 03/15/19 09:28 Shock gabapentin AdvReac Rash Verified 03/15/19 09:28 ketorolac AdvReac Swelling Verified 03/15/19 09:28 tetanus and diphtheria AdvReac Swelling Verified 03/15/19 09:28 toxoids Home Medications: Home Medications ALPRAZolam TAB* [Xanax TAB*] 0.5 mg PO TID PRN 03/15/19 [History Confirmed 03/15] PMH/Surg Hx/FS Hx/Imm Hx Previously Healthy: Yes - Has MS and chronic kidney disease GI/ History: Renal Disease Neurological History: Other - MS - Surgical History Surgical History: Yes Surgery Procedure, Year, and Place: hysterectomy. bowel surgery. carpal tunnel bilateral. ovaries removed. lithotripsy. [facility] - Family History Known Family History: Positive: Hypertension - Social History Occupation: Employed Full-time Lives: With Family Alcohol Use: None Substance Use Type: None Smoking Status (MU): Heavy Every Day Tobacco Smoker Type: Cigarettes Amount Used/How Often: 1/2 pack Length of Time of Smoking/Using Tobacco: 10 YRS Have You Smoked in the Last Year: Yes When Did the Patient Quit Smoking/Using Tobacco: 01/2019 - Immunization History Most Recent Influenza Vaccination: allergic to flu vac Review of Systems All Other Systems Reviewed And Are Negative: Yes Constitutional: Positive: Fever, Chills, Fatigue Skin: Positive: Negative Eyes: Positive: Negative ENT: Positive: Negative Respiratory: Positive: Negative Cardiovascular: Positive: Negative Gastrointestinal: Positive: Negative Genitourinary: Positive: Dysuria, Frequency, Urgency Motor: Positive: Negative Neurovascular: Positive: Negative Musculoskeletal: Positive: Negative Neurological: Positive: Negative Psychological: Positive: Negative Is Patient Immunocompromised?: No Physical Exam - Summary Physical Exam Summary: I discussed with the pt my concern about urosepsis and/pyelonephritis and pt stated that she would not follow my advice with regard to going to the ER at this time. I stated that she needed further testing and evaluation and she verbalized understanding and disagreed with this plan of care. Triage Information Reviewed: Yes Appearance: Well-Appearing Vital Signs: Initial Vital Signs Temp 99.3 F 03/15/19 09:29 Pulse 105 03/15/19 09:29 Resp 16 03/15/19 09:29 BP 119/82 03/15/19 09:29 Pulse Ox 100 03/15/19 09:29 Vital Signs Reviewed: Yes Eye Exam: Normal ENT: Positive: Hearing grossly normal Dental Exam: Normal Neck exam: Normal Neck: Positive: Supple, Nontender Respiratory: Positive: Normal breath sounds Cardiovascular: Positive: Tachycardia Abdomen Description: Positive: CVA Tenderness (R), CVA Tenderness (L) Musculoskeletal Exam: Normal Neurological Exam: Normal Psychological Exam: Normal Skin Exam: Normal Complaint Female Dx - Course Course Of Treatment: I recommended the pt go directly to the closest ER but pt disagreed with plan of care. Pt stated that if her symptoms did not improve in the next 24 hours she would seek care at the closest ER. P tstated that she has "been dealing with this since she was 10" and that she knew "what she needed to do" - Differential Dx/Diagnosis Differential Diagnosis/HQI/PQRI: Urinary Tract Infection Provider Diagnosis: UTI (urinary tract infection), Pyelonephritis Discharge ED - Sign-Out/Discharge Documenting (check all that apply): Patient Departure All imaging exams completed and their final reports reviewed: No Studies - Discharge Plan Condition: Stable Disposition: HOME Prescriptions: Cephalexin CAP* [Keflex 500 CAP*] 500 mg PO QID #28 cap EPINEPHrine [Epinephrine] 0.15 mg IJ ONCE PRN #1 auto.injct PRN Reason: Allergy Symptoms Fexofenadine (NF) [Charisse 180 (NF)] 180 mg PO DAILY #30 tab Fluconazole 150 MG TAB* [Diflucan 150 MG TAB*] 150 mg PO ONCE #2 tablet Fluticasone NASAL SPRAY 50MCG* [Flonase NASAL SPRAY 50MCG*] 2 spray BOTH NARES DAILY #1 btl Patient Education Materials: Urinary Tract Infection in Women (ED), Medicine Refill (ED) Referrals: [facility] [Outside] - If Needed No Primary Care Phys,NOPCP [Primary Care Provider] - Additional Instructions: Please follow up with your Regional E[facility] Manager as soon as possible. If your symptoms do not improve please go directly to the closest emergency room. Please establish care with a PCP as soon as possible. - Billing Disposition and Condition Condition: STABLE Disposition: Home
== END 2019-03-15 10:16 | disposition home or self-care (01) ==
LOC: UCCORT 09:19
DX: N39.0 Urinary tract infection, site not specified (principal); N12 Tubulo-interstitial nephritis, not specified as acute or chronic; N89.8 Other specified noninflammatory disorders of vagina; G35 Multiple sclerosis; Z91.030 Bee allergy status; Z88.7 Allergy status to serum and vaccine; Z88.0 Allergy status to penicillin; Z88.1 Allergy status to other antibiotic agents; Z91.013 Allergy to seafood; Z88.5 Allergy status to narcotic agent; Z88.8 Allergy status to other drugs, medicaments and biological substances; N18.9 Chronic kidney disease, unspecified; Z90.710 Acquired absence of both cervix and uterus; Z90.722 Acquired absence of ovaries, bilateral; F17.210 Nicotine dependence, cigarettes, uncomplicated
CPT/HCPCS: 81003; 87077; 87086; 87186; 99212; G0463

== ENCOUNTER 2019-05-09 18:39 | Emergency (ER) | payer OTHER ==
--- OUTSIDE RECORDS SUMMARY | 2019-05-09 18:48 | XMS REPORT | Continuity of Care Document ---
:1985 External Reference #:[id number] Author Name Katie Stevenson M.D. Address [address] [place] [address] Care Team Providers Name Role Phone Austin Mcgowan MD - Emergency Care Team Information Product Manufacturing Professional [phone] Medicine Todd Do MD - Family Medicine Care Team Information Product Manufacturing Professional Problems Active Problems Provider Date Renal colic Onset: 04/23/2017 Kidney stone Onset: 04/23/2017 Musculoskeletal pain Onset: 04/23/2017 Common cold Onset: 06/02/2016 Abdominal pain Onset: Nasopharyngitis Onset: Anaphylaxis Onset: Chest pain Onset: Cyst of ovary Onset: Kidney stone Onset: Musculoskeletal pain Onset: Pyelonephritis Onset: Renal colic Onset: Urinary tract infectious disease Katie Stevenson M.D. Onset: 05/01/2019 Social History Type Date Description Comments Sex Unknown ETOH Use Occasionally consumes alcohol Tobacco Use Start: Unknown Patient denies history of smoking Smoking Status Reviewed: 04/29/19 Patient denies history of smoking Allergies, Adverse Reactions, Alerts Active Allergies Reaction Severity Comments Date Pertussis Vaccines 04/23/2017 Penicillins 04/23/2017 Iodine 04/23/2017 Beeswax 04/23/2017 Ketorolac 04/23/2017 Ketorolac Tromethamine 05/01/2019 Tetanus 05/01/2019 Medications Active Medications SIG Qnty Indications Ordering Date Provider Oxycodone-Acetaminophen Every 6 Hours 8tabs Unknown 04/22/2019 for Pain 5-325mg Tablets Fluorometholone please apply 1 5ml H04.123 Judson eHrrera MD 11/22/2018 0.1% drop to both Suspension eyes 2 times daily for 1 week Epinephrine as Needed Unknown 0.3mg/0.3ML Solution Auto-Inject Anexsia as Needed Unknown 5-325mg Tablets Phenazopyridine HCL 3 Times Daily Unknown 100mg as needed for Tablets Urinary Pain Tamsulosin HCL Once Daily 10caps Unknown 0.4mg Capsules Alprazolam AT Bedtime 30tabs Unknown 0.5mg Tablets Ergocalciferol Qweekly Unknown 1.25mg (54587 Ut) Capsules Hydrocodone as Needed Unknown Bitartrate/Acetaminophen 5-325mg Tablets Ondansetron FQ6H as needed 21tabs Unknown 4mg Tablets for Nausea Dispers Phenazopyridine HCL 2 Times A Day Unknown 100mg as needed for Tablets Kidney Stones Immunizations CPT Code Status Date Vaccine Lot # [id number] Given Unknown Influenza Virus Vaccine, Quadrivalent, 36 Mos+, .5ML Vital Signs Date Vital Result Comment 05/01/2019 1:51pm BP Systolic Sitting Left Arm 123 mmHg BP Diastolic Sitting Left Arm 81 mmHg Body Temperature 98.4 F Heart Rate 118 /min Respiratory Rate 16 /min Height 64 inches 5'4" Weight 135.00 lb Pain Level 2 middle of back pain BMI (Body Mass Index) 23.2 kg/m2 BSA (Body Surface Area) 1.66 m2 [place]on body weight in kilograms 54 kg O2 % BldC Oximetry 98 % Results Test Acquired Date Facility Test Result H/L Range Note Urine Dipstick 05/01/2019 [facility] Ua Color Yellow Yellow Ua Clarity Clear Clear Ua Leuko Negative Negative Ua Nitrite Negative Negative Ua Urobilinogen 0.2 0.2 - 1.0 E.U./dL Ua Protein Negative Negative Ua PH 6.0 Low 6.5-7.5 Ua Blood Negative Negative Ua Specific [place] 1.010 1.010-1.030 Ua Ketones Negative Negative Ua Bilirubin Negative Negative Ua Glucose Negative Negative Alt SerPl-cCnc 04/21/2019 N2N/CCD Import Alanine 19 12-78 Aminotransferase (Alt/SGPT) Ast SerPl-cCnc 04/21/2019 N2N/CCD Import Aspartate Amino 11 Low 15-37 Transf (Ast/Sgot) Bilirub 04/21/2019 N2N/CCD Import Total Bilirubin 0.4 0.2-1.0 SerPl-mCnc Albumin/Glob 04/21/2019 N2N/CCD Import Albumin/Globulin 0.8 SerPl Ratio Phosphate 04/21/2019 N2N/CCD Import Phosphorus Level 1.7 Low 2.5-4.0 SerPl-mCnc Calcium 04/21/2019 N2N/CCD Import Calcium Level 7.5 8.5-10.1 SerPl-mCnc Co2 SerPl-sCnc 04/21/2019 N2N/CCD Import Carbon Dioxide Level 21 21-32 Chloride 04/21/2019 N2N/CCD Import Chloride Level 109 High 98-107 SerPl-sCnc Potassium 04/21/2019 N2N/CCD Import Potassium Level 3.4 Low 3.5-5.1 SerPl-sCnc Sodium 04/21/2019 N2N/CCD Import Sodium Level 135 Low 136-145 SerPl-sCnc BUN/Creat SerPl 04/21/2019 N2N/CCD Import BUN/Creatinine Ratio 8.3 GFR/Bsa 04/21/2019 N2N/CCD Import Estimated GFR >60 >60 pred.black () SerPl MDRD-ArVRat GFR/Bsa 04/21/2019 N2N/CCD Import Estimated GFR >60 >60 pred.non black (Non- SerPl MDRD-ArVRat CBC 04/21/2019 [facility] White Blood Count 7.5 K/uL Normal 3.1-10.7 [address] [place], [place] [id number] [phone] Red Blood Count 3.23 M/uL Low 3.90-5.40 Hemoglobin 10.7 gm/dL Low 11.6-15.8 Hematocrit 30.3 % Low 36.0-46.1 Mean Cell Volume 93.8 fl Normal 80.9-99.0 Mean Corpuscular HGB 33.1 pg High 25.9-32.7 Mean Corpuscular HGB Conc 35.3 g/dL High 30.8-34.3 Platelet Count 142 K/uL Low 155-360 Red Cell Distri Width SD 39.0 fl Normal 36-47 Red Cell Distri Width %CV 11.4 % Low 11.7-14.4 Mean Platelet Volume 11.1 fl Normal 8.9-12.4 NRBC % 0.0 /100WBC < 10/ 100 WBC Protime 04/21/2019 [facility] Protime 15.0 seconds High 12.0-14.4 [address] [place], [place] [id number] [phone] Inr 1.2 High 0.9-1.1 2 Comprehensive 04/21/2019 [facility] Glucose 93 mg/dL Normal 74-106 Metabolic Panel [address] [place] [address] [phone] BUN 5 mg/dL Critical low 7-18 Creatinine 0.6 mg/dL Normal 0.6-1.3 Glom Filtration Rate, Estimate >60 mL/min >60 If >60 mL/min >60 3 BUN/Creat 8.3 ratio Sodium 135 mmol/L Low 136-145 Potassium 3.4 mmol/L Low 3.5-5.1 Chloride 109 mmol/L High 98-107 Carbon Dioxide 21 mmol/L Normal 21-32 Anion Gap 5 mEq/L Low 8-16 Calcium 7.5 mg/dL Low 8.5-10.1 Total Protein 6.2 g/dL Low 6.4-8.2 Albumin 2.7 g/dL Low 3.4-5.0 Globulin 3.5 g/dL Normal 1.9-4.3 Alb/Glob 0.8 ratio Bilirubin,Total 0.4 mg/dL Normal 0.2-1.0 Sgot/Ast 11 U/L Low 15-37 4 SGPT/Alt 19 U/L Normal 12-78 Alkaline Phosphatase 53 U/L Normal 45-117 Laboratory test 04/21/2019 [facility] Phosphorous 1.7 mg/dL Low 2.5-4.0 finding [address] [place] [address] [phone] Magnesium 2.0 mg/dL Normal 1.6-2.6 MCV RBC Auto 04/21/2019 N2N/CCD Import Mean Corpuscular 93.8 80.9-99.0 Volume MCH RBC Qn Auto 04/21/2019 N2N/CCD Import Mean Corpuscular 33.1 High 25.9 -32.7 Hemoglobin MCHC RBC 04/21/2019 N2N/CCD Import Mean Corpuscular 35.3 High 30.8-34.3 Auto-mCnc Hemoglobin Concent RDW RBC Auto 04/21/2019 N2N/CCD Import Red Cell 39.0 36-47 Distribution Width RDW RBC Auto-Rto 04/21/2019 N2N/CCD Import RDW Coefficient 11.4 Low 11.7- 14.4 of Variation nRBC/100 WBC Bld 04/21/2019 N2N/CCD Import Nucleated Red 0.0 < 10/ 100 Auto-Rto Blood Cells % WBC (auto) Prothrombin time 04/21/2019 N2N/CCD Import Prothrombin Time 15.0 High 12.0-14.4 Inr PPP 04/21/2019 N2N/CCD Import Inr 1.2 High 0.9-1.1 International Normalized Ratio Glucose 04/21/2019 N2N/CCD Import Glucose Screen 93 74-106 SerPl-mCnc BUN SerPl-mCnc 04/21/2019 N2N/CCD Import Blood Urea 5 7-18 Nitrogen pH Ur Strip.auto 04/20/2019 N2N/CCD Import Urine pH 6.0 Low 6.5-7.5 Hgb Ur Ql 04/20/2019 N2N/CCD Import Urine Blood Moderate High Negative Strip.auto Sp Gr Ur 04/20/2019 N2N/CCD Import Urine Specific 1.016 1.010-1.030 Refractometry [place] Ketones Ur Ql 04/20/2019 N2N/CCD Import Urine Ketones 40 High Negative Strip.auto Bilirub Ur Ql 04/20/2019 N2N/CCD Import Urine Bilirubin Negative Negative Strip.auto Glucose Ur Ql 04/20/2019 N2N/CCD Import Urine Glucose Negative Negative Strip.auto (Ua) Appearance Ur 04/20/2019 N2N/CCD Import Urine Clarity Turbid Clear Color Ur Auto 04/20/2019 N2N/CCD Import Urine Color Yellow Yellow Lactate 04/20/2019 N2N/CCD Import Lactic Acid 1.6 0.4-1.9 SerPl-sCnc Level Toxic Granules 04/20/2019 N2N/CCD Import Toxic 0-1+ Bld Ql Smear Granulation Anisocytosis Bld 04/20/2019 N2N/CCD Import Anisocytosis 0-1+ Ql Smear Prot Ur Ql 04/20/2019 N2N/CCD Import Urine Protein 200 High Negative Strip.auto Urobilinogen Ur 04/20/2019 N2N/CCD Import Urine < 2.0 < 2.0 Ql Strip.auto Urobilinogen Nitrite Ur Ql 04/20/2019 N2N/CCD Import Urine Nitrite Positive High Negative Strip.auto Leukocyte 04/20/2019 N2N/CCD Import Urine Leukocyte Large High Negative esterase Ur Ql Esterase Strip.auto Lab Results 04/20/2019 N2N/CCD Import Urine RBC 21-30 0-2 WBC #/area UrnS 04/20/2019 N2N/CCD Import Urine WBC >50 0-5 HPF Bacteria Ur Ql 04/20/2019 N2N/CCD Import Urine Bacteria Many High None Seen Auto Mucous Threads 04/20/2019 N2N/CCD Import Urine Mucus Large None Seen Ur Ql Auto Laboratory 04/20/2019 N2N/CCD Import Urine Culture Culture To comment Report Reflexed Follow HCG Preg Ur Ql 04/20/2019 N2N/CCD Import Urine HCG, Negative Negative Qualitative Bacteria Ur Cult 04/20/2019 N2N/CCD Import Urine Culture Escherichia Coli Urine Culture Urethral Eda Bacteria Bld Aerobe 04/20/2019 N2N/CCD Import Aerobic Blood No Growth Cult Culture Bacteria Bld 04/20/2019 N2N/CCD Import Anaerobic Blood No Growth Anaerobe Cult Culture Neutrophils/leuk 04/20/2019 N2N/CCD Import Neutrophils (%) 84.9 High 40.4 - NFr Bld Auto (Auto) 72.8 Lymphocytes/leuk 04/20/2019 N2N/CCD Import Lymphocytes (%) 7.5 Low 20.0- NFr Bld Auto (Auto) 42.0 Monocytes/leuk NFr 04/20/2019 N2N/CCD Import Monocytes (%) 6.9 4.3-1 Bld Auto (Auto) 3.2 Eosinophil/leuk NFr 04/20/2019 N2N/CCD Import Eosinophils (%) 0.0 0.0-6 Bld Auto (Auto) .6 Basophils/leuk NFr 04/20/2019 N2N/CCD Import Basophils (%) 0.2 0.0-1 Bld Auto (Auto) .1 Imm 04/20/2019 N2N/CCD Import Immature 0.5 0.0-5 Granulocytes/leuk Granulocyte % .0 NFr Bld Auto (Auto) Neutrophils # Bld 04/20/2019 N2N/CCD Import Neutrophils # 11.16 High 1.8- 7 Auto (Auto) .0 Lymphocytes # Bld 04/20/2019 N2N/CCD Import Lymphocytes # 0.98 Low 1.0-4 Auto (Auto) .0 Monocytes # Bld 04/20/2019 N2N/CCD Import Monocytes # (Auto) 0.91 High 0.3-0 Auto .9 Eosinophil # Bld 04/20/2019 N2N/CCD Import Eosinophils # 0.00 0.0-0 Auto (Auto) .5 Basophils # Bld 04/20/2019 N2N/CCD Import Basophils # (Auto) 0.02 0.0-0 Auto .1 Imm Granulocytes # 04/20/2019 N2N/CCD Import Immature 0.07 Bld Auto Granulocyte # (Auto) nRBC # Bld Auto 04/20/2019 N2N/CCD Import Nucleated RBC 0.00 Absolute Count (auto) Unloinc 04/20/2019 N2N/CCD Import Manual Slide Review Diff Ordered (Hematology) Total Cells Counted 04/20/2019 N2N/CCD Import Differential Total 100 Bld Cells Counted Neuts Band/leuk NFr 04/20/2019 N2N/CCD Import Band Neutrophils % 20 0-8 Bld Manual Neuts Seg/leuk NFr 04/20/2019 N2N/CCD Import Neutrophils % 76 High 33-73 Bld Manual Lymphocytes/leuk 04/20/2019 N2N/CCD Import Lymphocytes % 2 Low 20-42 NFr Bld Manual Monocytes/leuk NFr 04/20/2019 N2N/CCD Import Monocytes % 2 0-10 Bld Manual Platelet Bld Ql 04/20/2019 N2N/CCD Import Platelet Estimate Normal Smear Poikilocytosis Bld 04/20/2019 N2N/CCD Import Poikilocytosis 0-1+ Ql Smear 1 SEPSIS 2/2 PYELONEPHRITIS 2 THERAPEUTIC INR RANGE: 2.0 - 3.0 DVT, Pulmonary embolus, prophylaxis against venous thrombosis or systemic embolization in high risk patients. 2.5 - 3.5 Mechanical heart valves 3 Note: Persistent reduction for 3 months or more in an eGFR <60 mL/min/1.73 m2 defines CKD. Patients with eGFR values >/=60 mL/min/1.73 m2 may also have CKD if evidence of persistent proteinuria is present. The original MDRD equation for estimated GFR is not valid for patients less than 18 years of age. Additional information may be found at www.kdoqi.org. 4 Values below the stated reference ranges of AST and ALT can be seen in normal populations. Clinical correlation is suggested. Procedures Date Code Description Status 11/22/2018 11069 Eye Exam New Patient Comprehensive Completed Medical Devices Description No Information Available Encounters Type Date Location Provider Dx Diagnosis Office Visit 05/01/2019 1:45p Urology Katie Stevenson M.D. N20.0 Calculus of kidney N39.0 Urinary tract infection, site not specified N83.202 Unspecified ovarian cyst, left side Assessments Date Code Description Provider 05/01/2019 N20.0 Calculus of kidney Katie Stevenson M.D. 05/01/2019 N39.0 Urinary tract infection, site not Katie Stevenson M.D. specified 05/01/2019 N83.202 Unspecified ovarian cyst, left side Katie Stevenson M.D. 04/22/2019 N39.0 Urinary tract infection, site not Katie Stevenson M.D. specified 04/22/2019 A41.9 Sepsis, unspecified organism Lonnie Damon FNP 04/22/2019 B96.20 Unspecified Escherichia coli [E. coli] Katie Stevenson M.D. as the cause of diseases classified elsewhere 04/22/2019 N10 Acute pyelonephritis Lonnie Damon FNP 04/22/2019 N39.0 Urinary tract infection, site not Lonnie Damon FNP specified 04/22/2019 B96.20 Unspecified Escherichia coli [E. coli] Lonnie Damon FNP as the cause of diseases classified elsewhere 04/21/2019 A41.9 Sepsis, unspecified organism Lonnie Damon FNP 04/21/2019 N10 Acute pyelonephritis Lonnie Damon FNP 04/20/2019 A41.9 Sepsis, unspecified organism Anila Larson MD 04/20/2019 N10 Acute pyelonephritis Anila Larson MD 04/20/2019 R82.90 Unspecified abnormal findings in urine Anila Larson MD 11/22/2018 H04.123 Dry eye syndrome of bilateral lacrimal Herrera, Judson, MD glands 11/22/2018 H15.102 Unspecified episcleritis, left eye Judson Herrera MD Plan of Treatment 05/01/2019 - Katie Stevenson M.D.N20.0 Calculus of kidneyComments:Patient with kidney stones and a significant history of them. She hasn't had a recent urine collection of recommended she does to 24 hour urine collections to assess her current status and see it and anything we could do to prevent more stones from forming. I did tell the patient and she consented UTIs might need to go and remove the stones.N39.0 Urinary tract infection, site not specifiedComments: Patient with history of UTIs. Her recent urinalysis didn't show any evidence for infection and dipstick exam today does not show evidence of infection.N83.202 Unspecified ovarian cyst, left sideComments:Patient with an ovarian cyst that I see on the CT scan. This could potentially be causing her left lower quadrant pain. I will refer her to see Dr. Livingston in gynecology. Functional Status Description No Information Available Mental Status Description No Information Available Referrals Refer to Reason for Referral Status Appt Date Created
[2019-05-09 18:51] VITALS: BP 124/80
--- NOTE | 2019-05-09 19:12 | UC ---
Throat Pain/Nasal Cory HPI - HPI Summary HPI Summary: Pt presents with c/o ST X 1 day. Pt is concerned for strep as her son tested positive for strep today at [facility]. Pt states that she has pmh of MS and has congenital kidney disease, is scheduled for pelvic/hhas surgery and kidney surgery next week and in June. - History of Current Complaint Chief Complaint: UCGeneralIllness Stated Complaint: SORE THROAT Time Seen by Provider: 05/09/19 18:42 Hx Obtained From: Patient Hx Last Menstrual Period: 9 yrs ago ?: No Onset/Duration: Sudden Onset Severity: Mild Pain Intensity: 3 Cough: None Associated Signs & Symptoms: Positive: Dysphagia - Epiglottits Risk Factors Epiglottis Risk Factors: Sudden Onset - Allergies/Home Medications Allergies/Adverse Reactions: Allergies Allergy/AdvReac Type Severity Reaction Status Date / Time bee venom protein (honey bee) Allergy Swelling Verified 05/09/19 18:50 Influenza Virus Vaccines Allergy Hives Verified 05/09/19 18:50 Iodinated Contrast Media Allergy Anaphylatic Verified 05/09/19 18:50 [Iodinated Contrast- Oral Shock and IV Dye] iodine Allergy Hives Verified 05/09/19 18:50 levofloxacin [From Levaquin] Allergy Unknown Verified 05/09/19 18:50 Reaction Details Penicillins Allergy Anaphylatic Verified 05/09/19 18:50 Shock Pertussis Vaccines Allergy Unknown Verified 05/09/19 18:50 Reaction Details shellfish derived Allergy Anaphylatic Verified 05/09/19 18:50 Shock gabapentin AdvReac Rash Verified 05/09/19 18:50 ketorolac AdvReac Swelling Verified 05/09/19 18:50 tetanus and diphtheria AdvReac Swelling Verified 05/09/19 18:50 toxoids Home Medications: Home Medications Fexofenadine (NF) [Charisse 180 (NF)] 180 mg PO DAILY PRN 05/09/19 [History Confirmed 05/09/19] PMH/Surg Hx/FS Hx/Imm Hx Previously Healthy: Yes - MS, congenital kidney disease GI/ History: Other - kidney disease - Surgical History Surgical History: Yes Surgery Procedure, Year, and Place: hysterectomy. bowel surgery. carpal tunnel bilateral. ovaries removed. lithotripsy. [facility] - Family History Known Family History: Positive: Hypertension - Social History Occupation: Employed Full-time Lives: With Family Alcohol Use: None Substance Use Type: None Smoking Status (MU): Light Every Day Tobacco Smoker Type: Cigarettes Amount Used/How Often: 1/4 ppd Length of Time of Smoking/Using Tobacco: 10 YRS Have You Smoked in the Last Year: Yes When Did the Patient Quit Smoking/Using Tobacco: 01/2019 - Immunization History Most Recent Influenza Vaccination: allergic to flu vac Vaccination Up to Date: Yes Review of Systems All Other Systems Reviewed And Are Negative: Yes Constitutional: Positive: Negative Skin: Positive: Negative Eyes: Positive: Negative ENT: Positive: Sore Throat Respiratory: Positive: Negative Cardiovascular: Positive: Negative Gastrointestinal: Positive: Negative Genitourinary: Positive: Negative Motor: Positive: Negative Neurovascular: Positive: Negative Musculoskeletal: Positive: Negative Neurological: Positive: Negative Psychological: Positive: Negative Is Patient Immunocompromised?: No Physical Exam Triage Information Reviewed: Yes Appearance: Well-Appearing Vital Signs: Initial Vital Signs Temp 99.2 F 05/09/19 18:45 Pulse 97 05/09/19 18:45 Resp 15 05/09/19 18:45 BP 124/80 05/09/19 18:45 Pulse Ox 99 05/09/19 18:45 Vital Signs Reviewed: Yes Eye Exam: Normal ENT: Positive: Pharyngeal erythema Dental Exam: Normal Neck exam: Normal Respiratory: Positive: No respiratory distress Musculoskeletal Exam: Normal Neurological Exam: Normal Psychological Exam: Normal Skin Exam: Normal Throat Pain/Nasal Course/Dx - Course Course Of Treatment: RApid strep was negative. I discussed this with pt and discussed use of antibiotics for ST. Pt verbalized understanding and agreed to plan of care. - Differential Dx/Diagnosis Differential Diagnosis/HQI/PQRI: Laryngitis, Pharyngitis, Tonsillitis Provider Diagnosis: Pharyngitis Discharge ED - Sign-Out/Discharge Documenting (check all that apply): Patient Departure All imaging exams completed and their final reports reviewed: No Studies - Discharge Plan Condition: Stable Disposition: HOME Prescriptions: Azithromycin TAB* [Zithromax TAB (Z-MARA) 250 mg #6 tabs] 2 tab PO .TODAY, THEN 1 DAILY #1 mara Fluconazole 100 MG TAB* [Diflucan 100 MG TAB*] 100 mg PO DAILY #2 tab Fluticasone NASAL SPRAY 50MCG* [Flonase NASAL SPRAY 50MCG*] 2 spray BOTH NARES BEDTIME #1 btl Patient Education Materials: Pharyngitis (ED) Referrals: [facility] [Outside] - If Needed No Primary Care Phys,NOPCP [Primary Care Provider] - Additional Instructions: Please follow up with your PCP as needed. - Billing Disposition and Condition Condition: STABLE Disposition: Home - Attestation Statements Provider Attestation: I was available for consult. This patient was seen by the MAGDA. The patient was not presented to, seen by, or examined by me. -James
== END 2019-05-09 19:24 | disposition home or self-care (01) ==
LOC: UCCORT 18:39
DX: J02.9 Acute pharyngitis, unspecified (principal); G35 Multiple sclerosis; F17.210 Nicotine dependence, cigarettes, uncomplicated; Z88.7 Allergy status to serum and vaccine; Z88.5 Allergy status to narcotic agent; Z88.8 Allergy status to other drugs, medicaments and biological substances; Z91.09 Other allergy status, other than to drugs and biological substances; Z88.0 Allergy status to penicillin; Z88.1 Allergy status to other antibiotic agents; Z91.041 Radiographic dye allergy status; Z91.030 Bee allergy status
CPT/HCPCS: 87651; 99212; G0463

== ENCOUNTER 2019-07-20 20:55 | Emergency (ER) | payer OTHER ==
[2019-07-20 21:21] VITALS: BP 111/71
--- NOTE | 2019-07-20 21:34 | UC ---
Abdominal Pain Female HPI - HPI Summary HPI Summary: 33 yo female with a 3 day hx of vomiting+ nausea today had a single episode of hematemesis denies light headedness feels fatigue has noted her pulse is > than normal of late no black or tarry stools - History of Current Complaint Chief Complaint: UCGI Stated Complaint: VOMITING Time Seen by Provider: 07/20/19 21:08 Hx Obtained From: Patient Hx Last Menstrual Period: 9 yrs ago Onset/Duration: Sudden Onset, Lasting Days Timing: Constant Severity Initially: Mild Severity Currently: Mild Pain Intensity: 2 Pain Scale Used: 0-10 Numeric Location: Epigastric Radiates: No Character: Burning Aggravating Factor(s): Nothing Alleviating Factor(s): Nothing Associated Signs and Symptoms: Positive: Nausea, Vomiting, Other: - hematemesis x 1. Negative: Diaphoresis, Fever, Cough, Chest Pain, Back Pain, Constipation, Blood in Stool, Urinary Symptoms, Decreased Appetite Allergies/Adverse Reactions: Allergies Allergy/AdvReac Type Severity Reaction Status Date / Time bee venom protein (honey bee) Allergy Swelling Verified 07/20/19 21:07 Influenza Virus Vaccines Allergy Hives Verified 07/20/19 21:07 Iodinated Contrast Media Allergy Anaphylatic Verified 07/20/19 21:07 [Iodinated Contrast- Oral Shock and IV Dye] iodine Allergy Hives Verified 07/20/19 21:07 levofloxacin [From Levaquin] Allergy Unknown Verified 07/20/19 21:07 Reaction Details Penicillins Allergy Anaphylatic Verified 07/20/19 21:07 Shock Pertussis Vaccines Allergy Unknown Verified 07/20/19 21:07 Reaction Details shellfish derived Allergy Anaphylatic Verified 07/20/19 21:07 Shock gabapentin AdvReac Rash Verified 07/20/19 21:07 ketorolac AdvReac Swelling Verified 07/20/19 21:07 tetanus and diphtheria AdvReac Swelling Verified 07/20/19 21:07 toxoids Home Medications: Home Medications Hydrocodone/Acetaminophen [Hydrocodone-Acetamin 10-325 mg] 1 tab PO ONCE PRN 03/13 [History Confirmed 07/20/19] Cholecalciferol TAB* [Vitamin D TAB*] 50,000 unit PO WEEKLY 07/29/17 [History Confirmed 07/20/19] Cyanocobalamin INJ * [Vitamin B12 INJ *] 1,000 mcg IM SEE INSTRUCTIONS 11/01/17 [History Confirmed 07/20/19] Albuterol HFA INHALER* [Ventolin HFA Inhaler*] 1 puff INH Q6H PRN 10 Days #1 mdi 10/27/18 [Rx Confirmed 07/20/19] Tamsulosin CAP* [Flomax CAP*] 0.4 mg PO BID 10/27/18 [History Confirmed 07/20/19 ] ALPRAZolam TAB* [Xanax TAB*] 0.5 mg PO BEDTIME 03/15/19 [History Confirmed 07/20] EPINEPHrine [Epinephrine] 0.15 mg IJ ONCE PRN #1 auto.injct 03/15/19 [Rx Confirmed 07/20/19] Fluticasone NASAL SPRAY 50MCG* [Flonase NASAL SPRAY 50MCG*] 2 spray BOTH NARES BEDTIME #1 btl 05/09/19 [Rx Confirmed 07/20/19] Acetaminophen [Acetaminophen Extra Strength] 500 mg PO PRN 07/20/19 [History] Phenazopyridine TAB* [Pyridium 100 mg TAB*] 100 mg PO TID PRN 07/20/19 [History Confirmed 07/20/19] Promethazine 25 mg TAB [Phenergan 25 mg TAB] 25 mg PO Q6H PRN 07/20/19 [History Confirmed 07/20/19] PMH/Surg Hx/FS Hx/Imm Hx Previously Healthy: Yes GI/ History: Ulcer, Kidney Stones, Renal Disease, Urosepsis Neurological History: Other Other Neurological History: MS - Surgical History Surgical History: Yes Surgery Procedure, Year, and Place: hysterectomy. bowel surgery. carpal tunnel bilateral. ovaries removed. lithotripsy. [facility]. breast augmentation and lift - Family History Known Family History: Positive: Hypertension - Social History Alcohol Use: None Substance Use Type: None Smoking Status (MU): Former Smoker Type: Cigarettes Amount Used/How Often: 1/4 ppd Length of Time of Smoking/Using Tobacco: 10 YRS Have You Smoked in the Last Year: Yes When Did the Patient Quit Smoking/Using Tobacco: 01/2019 - Immunization History Most Recent Influenza Vaccination: allergic to flu vac Vaccination Up to Date: Yes Review of Systems All Other Systems Reviewed And Are Negative: Yes Constitutional: Positive: Fatigue Skin: Positive: Negative Eyes: Positive: Negative ENT: Positive: Negative Respiratory: Positive: Negative Cardiovascular: Positive: Negative Gastrointestinal: Positive: Abdominal Pain, Vomiting, Nausea Genitourinary: Positive: Negative Motor: Positive: Negative Neurovascular: Positive: Negative Musculoskeletal: Positive: Negative Neurological/Mental Status: Positive: Negative Psychological: Positive: Negative Physical Exam Triage Information Reviewed: Yes Appearance: Well-Appearing, No Pain Distress, Well-Nourished Vital Signs: Initial Vital Signs Temp 99.4 F 07/20/19 21:12 Pulse 118 07/20/19 21:12 Resp 16 07/20/19 21:12 BP 111/71 07/20/19 21:12 Pulse Ox 100 07/20/19 21:12 Vital Signs Reviewed: Yes Eyes: Positive: Conjunctiva Clear ENT: Positive: Hearing grossly normal, Uvula midline. Negative: Nasal congestion, Nasal drainage, Trismus, Muffled voice, Hoarse voice Dental Exam: Normal Neck: Positive: Supple, Nontender, No Lymphadenopathy Respiratory: Positive: Lungs clear, Normal breath sounds, No respiratory distress, No accessory muscle use Cardiovascular: Positive: RRR, No Murmur, Tachycardia Abdomen Description: Positive: Soft. Negative: Nontender - epigastric tenderness, CVA Tenderness (R), CVA Tenderness (L) Bowel Sounds: Positive: Present Musculoskeletal: Positive: ROM Intact, No Edema Neurological: Positive: Alert, Muscle Tone Normal Psychological Exam: Normal Skin Exam: Normal Diagnostics - Laboratory Lab Results: UA SP > 1.030 Abd Pain Female Course/Dx - Course Course Of Treatment: Unable to speak to ER MD gave report to charge nurse To [facility] via POV - Differential Dx/Diagnosis Provider Diagnosis: Epigastric pain, Hematemesis Discharge ED - Sign-Out/Discharge Documenting (check all that apply): Patient Departure All imaging exams completed and their final reports reviewed: No Studies - Discharge Plan Condition: Stable Disposition: HOME-RECOMMEND TO ED Patient Education Materials: Hematemesis (ED) Referrals: No Primary Care Phys,NOPCP [Primary Care Provider] - Additional Instructions: I suggest you go straight to the [facility] ER for evaluation You heart rate is elevated and with the blood in your vomitus I think you need a higher level of care - Billing Disposition and Condition Condition: STABLE Disposition: Home-Recommend to ED
[2019-07-20] MEDS ORDERED: Ondansetron ODT TAB* 4 MG PO ONE (21:35)
== END 2019-07-20 21:50 | disposition home health service (06) ==
LOC: UCCORT 20:55
DX: R10.13 Epigastric pain (principal); K92.0 Hematemesis; R11.2 Nausea with vomiting, unspecified; Z87.891 Personal history of nicotine dependence; Z91.030 Bee allergy status; Z91.09 Other allergy status, other than to drugs and biological substances; Z88.7 Allergy status to serum and vaccine; Z91.041 Radiographic dye allergy status; Z88.1 Allergy status to other antibiotic agents
CPT/HCPCS: 81003; 99212; G0463